=== PATIENT | male | born 1975 | race Caucasian/White ===

== ENCOUNTER 2016-12-10 15:42 | Emergency (ER) | payer OTHER ==
[~2016-12-10] VITALS: Ht 172.7 cm; Wt 97.7 kg
[~2016-12-10 15:42] MED LIST: CLINDAMYCIN HC300 MG PO; FLEXERIL10 MG PO; INDOCIN25 MG PO; LISINOPRIL5 MG PO; LYRICA75 MG PO; MOBIC7.5 MG PO; NAPROXEN500 MG PO; NEURONTIN300 MG PO; OMEPRAZOLE20 MG PO; OXYCODONE-APAP1 EAC6; PERCOCET 7.51 TABLE1; PREDNISONE10 MG PO; PRILOSEC OTC20 MG
[2016-12-10 18:03] VITALS: BP 137/85
== END 2016-12-10 18:05 | disposition home or self-care (01) ==
LOC: EME 15:42
DX: S86.811A Strain of other muscle(s) and tendon(s) at lower leg level, right leg, initial encounter (principal); W01.0XXA Fall on same level from slipping, tripping and stumbling without subsequent striking against object, initial encounter; Y93.01 Activity, walking, marching and hiking
CPT/HCPCS: 99281; 99284

== ENCOUNTER 2016-12-13 17:09 | Emergency (ER) | payer OTHER ==
[~2016-12-13] VITALS: Ht 172.7 cm; Wt 108.8 kg
[2016-12-13 18:32] LABS: MCH 30.4 PG (29.0-34.0); MCHC 34.2 G/DL (30.0-36.0); MCV 88.9 FL (86-99); MEAN PLAT.VOLUME 10.4 uM^3 (9.0-12.4); PLATELET COUNT 313 K/uL (156-360); RBC DIS.WIDTH-CV 12.6 % (11.8-14.6); RBC DIS.WIDTH-SD 41.1 % (39-53); RED BLOOD COUNT 5.06 M/uL (4.00-5.50); WHITE BLOOD COUNT 9.8 K/uL (4.1-10.2)
[2016-12-13] MEDS ORDERED: XARELTO15 MG PO (18:38)
[2016-12-13 18:42] LABS: INTER. NORMALIZED RATIO 1.1; PROTHROMBIN TIME 10.7 (9.2-11.2)
[2016-12-13 18:43] LABS: CHLORIDE 103 mEq/L (99-109); POTASSIUM 3.9 mEq/L (3.7-5.4); SODIUM 138 mEq/L (136-147)
[2016-12-13 18:45] LABS: GLUCOSE 141 mg/dL (70-99)
[2016-12-13 18:46] VITALS: BP 122/84
[2016-12-13 18:46] LABS: ANION GAP 9 MEQ/L (2-14)
[2016-12-13 18:49] LABS: GFR ESTIMATE (CALCULATED) > 59 mL/min/
[2016-12-13 18:50] LABS: UREA NITROGEN (BUN) 11 mg/dL (9-23)
== END 2016-12-13 18:48 | disposition home or self-care (01) ==
LOC: EME 17:09
PROVIDERS: Physician Assistant
DX: I82.4Z1 Acute embolism and thrombosis of unspecified deep veins of right distal lower extremity (principal); S86.8 Injury of other muscles and tendons at lower leg level; W01.0XXS Fall on same level from slipping, tripping and stumbling without subsequent striking against object, sequela; Z88.0 Allergy status to penicillin; F17.200 Nicotine dependence, unspecified, uncomplicated; Z65.8 Other specified problems related to psychosocial circumstances; I10 Essential (primary) hypertension; K21.9 Gastro-esophageal reflux disease without esophagitis; M54.9 Dorsalgia, unspecified; G89.29 Other chronic pain
CPT/HCPCS: 80048; 85027; 85610; 85730; 99281; 99283